=== PATIENT | female | born 1990 | race Caucasian/White ===

== ENCOUNTER 2023-09-15 21:35 | Outpatient (REF) | payer MEDICARE, SELFPAY | END 2023-09-15 21:36 | disposition home or self-care (01) | LOC: LAB 21:35 | PROVIDERS: Visit Provider Obstetrics & Gynecology | DX: Z01.419 Encounter for gynecological examination (general) (routine) without abnormal findings (principal) | CPT/HCPCS: 87624; G0145 ==

== ENCOUNTER 2024-11-01 19:06 | Outpatient (REF) | payer MEDICARE, MEDICAID, SELFPAY ==
[2024-11-04 11:09] LABS: Age Gdln ACOG Testing Note (.); HPV Aptima Negative (Negative); IGP, Aptima HPV, rfx 16/18,45 Note (.)
== END 2024-11-01 19:07 | disposition home or self-care (01) ==
LOC: LAB 19:06
PROVIDERS: Visit Provider Physician Assistant
DX: Z01.419 Encounter for gynecological examination (general) (routine) without abnormal findings (principal)
CPT/HCPCS: 87624; 88175